=== PATIENT | female | born 1950 | race Caucasian/White ===

== ENCOUNTER 2018-01-13 10:23 | Outpatient (CLI) | payer MEDICARE, BC ==
--- NOTE | 2018-01-13 11:12 | RAD ---
RIGHT ANKLE THREE VIEWS: COMPARISON: History of right ankle pain and swelling. Snapping sensation in the ankle. FINDINGS: Three views of the right ankle show no evidence of acute fracture or dislocation. Moderate diffuse s oft tissue swelling is seen. No significant changes are present. IMPRESSION: No evidence of acute osseous abnormality. POS: [facility]
== END 2018-01-13 10:24 | disposition home or self-care (01) ==
LOC: SCSRAD 10:23
PROVIDERS: ATTEND Podiatrist
DX: M25.571 Pain in right ankle and joints of right foot (principal); R29.898 Other symptoms and signs involving the musculoskeletal system; I63.9 Cerebral infarction, unspecified

== ENCOUNTER 2018-02-16 12:57 | Outpatient (CLI) | payer MEDICARE, BC ==
--- NOTE | 2018-02-16 15:14 | MRI ---
MRI OF THE RIGHT HINDFOOT WITHOUT CONTRAST: Date: 02/16/18 INDICATION: History of right ankle pain for many years. COMPARISON: Right ankle radiograph dated 01/13/18. FINDINGS: There is moderate degenerative arthrosis involving the midfoot with numerous areas of scattered subch ondral cyst-like abnormality. No definite acute fracture is evident. No joint effusion is present. Th ere is mild enthesopathic change off the posterior and plantar calcaneus. The ATFL, PTFL, and calcaneofibular ligaments appear intact. The deltoid ligament appears intact. The syndesmotic ligaments are intact. Medial flexor tendons are intact. The Achilles tendon is intact. T he extensor tendons are intact. No osteochondral lesion is evident. Sinus tarsi has a normal signal i ntensity. The plantar fascia appears within normal limits. The Achilles tendon is intact. IMPRESSION: Moderate osteoarthrosis of the right midfoot. POS: [facility]
== END 2018-02-16 12:58 | disposition home or self-care (01) ==
LOC: SCSMRI 12:57
PROVIDERS: ATTEND Podiatrist
DX: M25.571 Pain in right ankle and joints of right foot (principal); M24.871 Other specific joint derangements of right ankle, not elsewhere classified; R60.0 Localized edema; M19.071 Primary osteoarthritis, right ankle and foot

== ENCOUNTER 2018-03-03 13:22 | Outpatient (CLI) | payer MEDICARE, BC ==
--- NOTE | 2018-03-03 16:00 | MMO ---
BILATERAL DIGITAL SCREENING MAMMOGRAMS: History: 68-year-old female presented for digital screening mammography. Comparison: 12-25-16, 02-23-14 FINDINGS: This study is interpreted with the assistance of computer aided detection. Scattered areas of fibroglandular density are noted bilaterally. 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 No direct o r indirect evidence of malignancy. IMPRESSION: BIRADS category 2 - benign findings. Continued routine screening. POS: [facility]
== END 2018-03-03 13:23 | disposition home or self-care (01) ==
LOC: SCSMAMMO 13:22
PROVIDERS: ATTEND Family Medicine
DX: Z12.31 Encounter for screening mammogram for malignant neoplasm of breast (principal)
CPT/HCPCS: 77067

== ENCOUNTER 2020-08-25 11:19 | Outpatient (CLI) | payer MEDICARE, BC ==
[2020-08-25 14:34] LABS: Hemoglobin 13.8 g/dL (12.0-15.5); Mean Corpuscular HGB CONC 33.9 g/dL (32.0-36.0); Mean Corpuscular Hemoglobin 31.9 pg (27.0-33.0); Mean Platelet Volume 10.9 fl (7.4-10.4); Platelet Count 199 10x3/uL (150-450); RBC Distribution Width 12.3 % (11.5-14.5); Red Blood Cell (RBC) Count 4.33 10x6/uL (3.90-5.03); White Blood Cell (WBC) Count 5.3 10x3/uL (3.5-10.5)
[2020-08-25 14:51] LABS: Anion Gap 14 mmol/L (10-20); BUN (Urea Nitrogen) 13 mg/dL (9.8-20.1); Calc. Creatinine Clearance 0 mL/min (70-130); Calcium 9.5 mg/dL (7.8-10.44); Carbon Dioxide 25 mmol/L (23-31); Chloride 103 mmol/L (98-107); Glucose 87 mg/dL (80-115); Potassium 4.3 mmol/L (3.5-5.1); Sodium 138 mmol/L (136-145)
[2020-08-26 01:27] LABS: SARS-CoV-2 PCR by NAA Not Detected (NotDetected)
== END 2020-08-25 11:20 | disposition home or self-care (01) ==
LOC: LABBT 11:19
PROVIDERS: ATTEND Orthopaedic Surgery
DX: Z01.818 Encounter for other preprocedural examination (principal); S52.501A Unspecified fracture of the lower end of right radius, initial encounter for closed fracture; Z20.822 Contact with and (suspected) exposure to COVID-19
CPT/HCPCS: 80048; 85027; 93005; U0003; U0005; 87635; 93010

== ENCOUNTER 2020-08-30 10:30 | Day surgery (SDC) | payer MEDICARE, BC ==
[2020-08-28 16:01] VITALS: BMI 30.4
[2020-08-30] MEDS ORDERED: Midazolam HCl 2 mg/2 ml Vial ONE (10:52)
[2020-08-30] MEDS ORDERED: Fentanyl 100 MCG/2 ML VIAL ONE (10:53)
[2020-08-30] MEDS ORDERED: Bupivacaine PF 0.5% 30 ML VIAL ONE (11:30)
[2020-08-30] MEDS ORDERED: Lidocaine 2% w/Epinephrine 1:200K 20 ML VIAL ONE (11:30)
[2020-08-30] MEDS ORDERED: PROPOFOL 200 MG/20 ML VIAL ONE (12:02)
[2020-08-30] MEDS ORDERED: Ondansetron PF 4 MG/2 ML Vial ONE (12:02)
[2020-08-30] MEDS ORDERED: Dexamethasone 20 MG/5 ML VIAL ONE (12:02)
[2020-08-30] MEDS ORDERED: Lidocaine 1% PF 5 ML VIAL ONE (12:02)
[2020-08-30] MEDS ORDERED: Ropivacaine 0.2% 550 ML 550 ML NERVE BLCK SCH (14:15)
[2020-08-30] MEDS ORDERED: Zolpidem Tartrate 5 MG TAB PO PRN (14:15)
[2020-08-30] MEDS ORDERED: Promethazine HCl 25 MG/ML VIAL IM PRN (14:15)
[2020-08-30] MEDS ORDERED: Ondansetron PF 4 MG/2 ML Vial IVP PRN (14:15)
== END 2020-08-30 16:10 | disposition home or self-care (01) ==
LOC: SDC 10:30
PROVIDERS: ATTEND Orthopaedic Surgery
PROC: 0PSH04Z Reposition Right Radius with Internal Fixation Device, Open Approach (ICD-10-PCS; principal; 2020-08-30)
PROC: 3E0T3BZ Introduction of Anesthetic Agent into Peripheral Nerves and Plexi, Percutaneous Approach (ICD-10-PCS; 2020-08-30)
DX: S52.531A Colles' fracture of right radius, initial encounter for closed fracture (principal); G89.18 Other acute postprocedural pain; Z86.73 Personal history of transient ischemic attack (TIA), and cerebral infarction without residual deficits; Z87.891 Personal history of nicotine dependence; Z79.899 Other long term (current) drug therapy; Z88.5 Allergy status to narcotic agent; W19.XXXA Unspecified fall, initial encounter
CPT/HCPCS: 25607; 64416; 73110; 76000; A4306; C1713; J0690; J1100; J2250; J2405; J2704; J2795; J3010; S0020